=== PATIENT | male | born 1980 | race Caucasian/White ===

== ENCOUNTER 2017-10-03 17:35 | Emergency (ER) | payer OTHER ==
[~2017-10-03] VITALS: Ht 190.5 cm; Wt 81.2 kg
[2017-10-03 17:45] VITALS: BP 121/74
== END 2017-10-03 17:45 | disposition left against medical advice (07) ==
LOC: M.ERS 17:35
DX: Z53.21 Procedure and treatment not carried out due to patient leaving prior to being seen by health care provider (principal)